=== PATIENT | female | born 1955 | race Caucasian/White ===

== ENCOUNTER → 2020-10-22 | Outpatient (CLI) | payer MEDICARE | LOC: US 12:51 | DX: R59.0 Localized enlarged lymph nodes (principal) | CPT/HCPCS: 76881 ==

== ENCOUNTER → 2020-10-24 | Outpatient (CLI) | payer MEDICARE | LOC: MAMO 07:23 | DX: Z12.31 Encounter for screening mammogram for malignant neoplasm of breast (principal) | CPT/HCPCS: 77063; 77067 ==

== ENCOUNTER → 2020-11-25 | Outpatient (CLI) | payer MEDICARE | LOC: US 13:13 | DX: R92.8 Other abnormal and inconclusive findings on diagnostic imaging of breast (principal); N63.21 Unspecified lump in the left breast, upper outer quadrant | CPT/HCPCS: 76641-LT ==

== ENCOUNTER → 2021-01-07 | Outpatient (CLI) | payer MEDICARE | LOC: US 12:30 | DX: M79.621 Pain in right upper arm (principal) | CPT/HCPCS: 76882 ==

== ENCOUNTER → 2021-04-15 | Outpatient (CLI) | payer MEDICARE | LOC: US 13:24 | DX: R59.0 Localized enlarged lymph nodes (principal) | CPT/HCPCS: 76882 ==

== ENCOUNTER → 2021-05-20 | Outpatient (CLI) | payer MEDICARE | LOC: RAD 12:06 | DX: M65.312 Trigger thumb, left thumb (principal) | CPT/HCPCS: 73130 ==